=== PATIENT | female | born 1980 | race Caucasian/White ===

== ENCOUNTER 2022-03-29 21:26 | Inpatient (IN) | payer MEDICAID ==
[~2022-03-29] VITALS: Ht 162.6 cm; Wt 65.9 kg
[~2022-03-29 21:26] MED LIST: HYDR1TAB PO; PENI500T2 PO
[2022-03-29 22:51] LABS: BASOPHILS # (AUTO) 0.1 X10'3 (0-0.2); BASOPHILS % (AUTO) 0.7 % (0-1); EOSINOPHILS # (AUTO) 0.1 X10'3 (0-0.9); EOSINOPHILS % (AUTO) 0.5 % (0-6); HEMATOCRIT 44.9 % (35.0-45.0); HEMOGLOBIN 15.2 g/dl (12.0-16.0); LYMPHOCYTES # (AUTO) 1.5 X10'3 (1.1-4.8); LYMPHOCYTES % (AUTO) 13.9 % (21-51); MEAN CORPUSCULAR HEMOGLOBIN 27.8 PG (27.0-31.0); MEAN CORPUSCULAR HGB CONC 33.9 g/dL (33.0-36.5); MEAN PLATELET VOLUME 8.4 FL (7.4-10.4); MONOCYTES # (AUTO) 0.3 X10'3 (0-0.9); MONOCYTES % (AUTO) 2.8 % (2-12); NEUTROPHILS # (AUTO) 8.8 X10'3 (1.8-7.7); NEUTROPHILS % (AUTO) 82.1 % (42-75); PLATELET COUNT 438 X10'3 (140-440); RED BLOOD COUNT 5.47 X10'6 (4.20-5.60); RED CELL DISTRIBUTION WIDTH 13.7 % (11.5-14.5); WHITE BLOOD COUNT 10.8 X10'3 (4.5-11.0)
[2022-03-29 23:01] LABS: CLARITY,URINE CLOUDY (Clear); COLOR,URINE YELLOW (Yellow); GLUCOSE, URINE NEGATIVE (Neg); KETONES,URINE >=80 mg/dl (Neg); LEUKOCYTE ESTERASE ,URINE TRACE (Neg); NITRITES, URINE NEGATIVE (Neg); OCCULT BLOOD,URINE MODERATE (Neg); PH,URINE >=9.0 (4.8-8.0); PROTEIN,URINE 30 mg/dl (Neg); UROBILINOGEN,URINE 0.2 E.U/dL (0.2-1.0)
[2022-03-29 23:02] LABS: URINE HCG NEGATIVE (NEG)
[2022-03-29 23:03] LABS: ALANINE AMINOTRANSFERASE 22 U/L (12-78); ALBUMIN 4.3 G/DL (3.4-5.0); ALBUMIN/GLOBULIN RATIO 1.1 (1.1-1.5); ALKALINE PHOSPHATASE 62 IU/L (46-116); ANION GAP 10 (8-16); ASPARTATE AMINO TRANSFERASE 14 U/L (10-37); BILIRUBIN,TOTAL 0.5 MG/DL (0.1-1.0); BLOOD UREA NITROGEN 10 MG/DL (7-18); BUN/CREATININE RATIO 10.1 (6.6-38.0); CALCIUM 9.3 MG/DL (8.5-10.1); CHLORIDE 102 MMOL/L (99-107); CREATININE 0.99 MG/DL (0.40-0.90); GLUCOSE 111 MG/DL (70-104); LIPASE 77 U/L (73-393); POTASSIUM 4.1 MMOL/L (3.5-5.1); SODIUM 138 MMOL/L (135-145); TOTAL CARBON DIOXIDE 25.7 MMOL/L (24-32); TOTAL PROTEIN 8.2 G/DL (6.4-8.2); eGFR 62 ML/MIN
[2022-03-29 23:05] LABS: UA COLLECTION TYPE CLN CATCH MIDSTREAM
[2022-03-29 23:22] LABS: BACTERIA,URINE 3+ /HPF (Neg); SQUAMOUS EPITHELIAL CELL,UR MANY /LPF (FEW)
[2022-03-29 23:23] LABS: CALCIUM PHOSPHATE CRYSTALS,UR 4+ /HPF (NEGATIVE)
[2022-03-30] MEDS ORDERED: normal saline 1000ML IV soln IVB ONE (06:55)
[2022-03-30] MEDS ORDERED: ondansetron/PF 4mg/2ml inj IV ONE (06:55)
[2022-03-30] MEDS: morphine 2 MG/ML inj. syringe IV PRN ×5 (07:10→10:10)
[2022-03-30] MEDS ORDERED: iohexol 350MG/ML 100ml bottle IV ONE (07:38)
--- NOTE | 2022-03-30 08:25 | NUR ---
TO CT SCAN.
--- NOTE | 2022-03-30 09:25 | NUR ---
CALL [facility] AT [phone] WHENEVER PT IS READY TO BE DISCHARGE.
[2022-03-30] MEDS ORDERED: CefTRIAXone/D5W-Rocephin 1gm 50 ML IV ONE (10:05)
[2022-03-30] MEDS ORDERED: tamsulosin 0.4mg capsule PO SCH ×2 (10:05→21:00)
--- NOTE | 2022-03-30 10:19 | NUR ---
NOTIFIED THE PROVIDER THAT PT IS IN LOT OF PAIN AFTER GETTING 4 MG IV MORPHINE ,NO IMPROVEMENT , PER MD SHE WILL ORDER PAIN MEDS.
[2022-03-30] MEDS ORDERED: HYDROmorphone inj. 0.5 MG/0.5 ML DISP.SYRIN IV ONE (10:20)
[2022-03-30] MEDS ORDERED: HYDROmorphone inj. 0.5 MG/0.5 ML DISP.SYRIN IV PRN (10:50)
[2022-03-30] MEDS ORDERED: magnesium hydroxide 30ml (MOM) UD suspension PO PRN (10:50)
[2022-03-30] MEDS ORDERED: HYDROcodone/acetaminophen 5mg/325mg tablet PO PRN (10:50)
[2022-03-30] MEDS ORDERED: mag hydrox/Alum hydrox/simeth 30ml oral suspension PO PRN (10:50)
[2022-03-30] MEDS ORDERED: ondansetron/PF 4mg/2ml inj IV PRN (10:50)
[2022-03-30] MEDS ORDERED: HYDROmorphone/PF 0.2 MG/ML SYRINGE IV PRN (10:50)
[2022-03-30] MEDS ORDERED: acetaminophen 325mg tablet PO PRN ×2 (10:50)
[2022-03-30] MEDS ORDERED: metoclopramide 5 mg/ml inj IV PRN (10:50)
[2022-03-30] MEDS: normal saline 1000ml 1,000 ML IV SCH ×2 (11:19→20:48)
[2022-03-30] MEDS: HYDROcodone/acetaminophen 10/325mg tab PO PRN ×2 (13:12→18:37)
[2022-03-30] MEDS ORDERED: NO HOME MEDS (16:43)
[2022-03-30] MEDS: docusate sod 100mg capsule PO SCH (20:31)
[2022-03-31] MEDS: normal saline 1000ml 1,000 ML IV SCH (06:50)
[2022-03-31 06:58] VITALS: BP 98/55
[2022-03-31] MEDS ORDERED: CefTRIAXone/D5W-Rocephin 1gm 50 ML IV SCH (08:00)
[2022-03-31] MEDS: docusate sod 100mg capsule PO SCH (08:00)
[2022-03-31] MEDS ORDERED: morphine 4 MG/ML inj SYRINge IV PRN (09:10)
[2022-03-31] MEDS ORDERED: morphine 2 MG/ML inj. syringe IV PRN (09:10)
[2022-03-31] MEDS ORDERED: proCHLORperazine 10 MG/2 ml inj IV PRN (09:10)
[2022-03-31] MEDS ORDERED: meperidine/PF 25mg/ml syringe IV PRN ×3 (09:10)
[2022-03-31] MEDS ORDERED: ondansetron/PF 4mg/2ml inj IV PRN (09:10)
[2022-03-31] MEDS ORDERED: ringers solution, lacted 1,000 ML IV SCH (09:10)
--- NOTE | 2022-03-31 09:10 | NUR ---
hospitalist visited by bedside, agreed to D/C pt since she advised that she passed kidney stones in urine, and she does not currently have any symptoms
[2022-03-31 09:25] LABS: BASOPHILS % (AUTO) 0.6 % (0-1); EOSINOPHILS # (AUTO) 0.1 X10'3 (0-0.9); EOSINOPHILS % (AUTO) 1.5 % (0-6); HEMATOCRIT 38.9 % (35.0-45.0); HEMOGLOBIN 13.1 g/dl (12.0-16.0); LYMPHOCYTES # (AUTO) 1.5 X10'3 (1.1-4.8); LYMPHOCYTES % (AUTO) 20.2 % (21-51); MEAN CORPUSCULAR HGB CONC 33.6 g/dL (33.0-36.5); MEAN CORPUSCULAR VOLUME 83.3 FL (78-98); MEAN PLATELET VOLUME 8.5 FL (7.4-10.4); MONOCYTES # (AUTO) 0.4 X10'3 (0-0.9); MONOCYTES % (AUTO) 5.4 % (2-12); NEUTROPHILS # (AUTO) 5.5 X10'3 (1.8-7.7); NEUTROPHILS % (AUTO) 72.3 % (42-75); PLATELET COUNT 312 X10'3 (140-440); RED BLOOD COUNT 4.67 X10'6 (4.20-5.60); WHITE BLOOD COUNT 7.6 X10'3 (4.5-11.0)
[2022-03-31 09:33] LABS: ALBUMIN 3.2 G/DL (3.4-5.0); ANION GAP 12 (8-16); BLOOD UREA NITROGEN 9 MG/DL (7-18); BUN/CREATININE RATIO 9.7 (6.6-38.0); CALCIUM 8.3 MG/DL (8.5-10.1); CHLORIDE 100 MMOL/L (99-107); CREATININE 0.93 MG/DL (0.40-0.90); GLUCOSE 90 MG/DL (70-104); POTASSIUM 3.4 MMOL/L (3.5-5.1); SODIUM 138 MMOL/L (135-145); TOTAL CARBON DIOXIDE 25.8 MMOL/L (24-32); eGFR 67 ML/MIN
--- NOTE | 2022-03-31 09:33 | NUR ---
Vane esquivel in [facility] - 03/31/22 at 0934 by [email or web address] Pt back from CT abd via wheelchair, no stress noted.
--- NOTE | 2022-03-31 10:55 | NUR ---
Telephone call to patient at this time regarding DC paperwork, all questions and concerns addressed since patient left without signing paperwork. IV DC with canula intact, ambulated off unit safely. Patient verbalized understanding of DC instructions and follow up with PCP or return to ER for any new or worsening symptoms.
== END 2022-03-31 11:02 | disposition home or self-care (01) | DRG 463 ==
LOC: ER 03-30 05:37 → ED HOLD 03-30 10:52 → EDBEDREQ 03-31 00:38
PROVIDERS: ADMIT Internal Medicine; ATTEND Internal Medicine
DX: N13.6 Pyonephrosis (principal); Q62.11 Congenital occlusion of ureteropelvic junction; F12.90 Cannabis use, unspecified, uncomplicated; F17.210 Nicotine dependence, cigarettes, uncomplicated; Z98.51 Tubal ligation status
CPT/HCPCS: 36415; 74177; 80048; 80053; 81001; 81025; 83690; 85025; 99285; G0378; J0696; J1170; J2270; J2405; J3490; J7030; Q9967

== ENCOUNTER 2022-03-30 01:49 | Emergency (ER) | payer MEDICAID ==
[2022-03-30] MEDS ORDERED: NO HOME MEDS (16:43)
== END 2022-03-30 02:29 | disposition left against medical advice (07) ==
LOC: ER 01:49
DX: Z87.448 Personal history of other diseases of urinary system (principal); Z53.21 Procedure and treatment not carried out due to patient leaving prior to being seen by health care provider